=== PATIENT | male | born 1990 | race Hispanic/Latino ===

== ENCOUNTER → 2018-11-22 | Outpatient (CLI) | payer OTHER ==
--- NOTE | 2018-11-22 12:04 | MRI ---
EXAM DESCRIPTION: Lumbar Spine w/o Contrast CLINICAL HISTORY: LOW BACK PAIN COMPARISON: None Available. TECHNIQUE: MRI of the lumbar spine is performed according to our usual protocol with axial and sagittal multi sequence imaging. FINDINGS: Sagittal T2 images reveal decreased signal intensity consistent with desiccation of the intervertebral discs at levels L4-5 and L5-S1. Posterior annular bulges are relatively mild at these levels. No prevertebral mass or aneurysm. Lower cord and conus appear normal. Tip of the conus is behind the upper L1. High signal intensity in the posterior L5-S1 disc consistent with posterior annular tear. Sagittal T1 images reveal benign marrow signal characteristics. Normal T1 signal intensity and appearance of the lower cord and conus. Sagittal STIR images are negative for marrow edema within the vertebral bodies or posterior elements. No paraspinous fluid collection or cystic lesion. Axial T1 and T2-weighted images were obtained to evaluate the disc levels. L1-2: No posterior annular bulge or herniation. No spinal stenosis or neural foraminal narrowing. Facets appear normal. L2-3: No posterior annular bulge or herniation. No spinal stenosis or neural foraminal narrowing. Facets appear normal. L3-4: No posterior annular bulge or herniation. No spinal stenosis or neural foraminal narrowing. Facets appear normal. L4-5: Mild diffuse posterior annular bulge with superimposed midline protrusion measuring 4.5 mm in AP dimension and 1.4 cm in mediolateral width. This extends slightly inferiorly behind the upper endplate of L5. No significant spinal stenosis or neural foraminal narrowing. Mild facet hypertrophic changes with prominent ligamentum flavum thickness causes moderately severe left and moderate right subarticular recess narrowing impinging upon descending left L5 nerve root. L5-S1: Small midline protrusion measures 4 mm in AP dimension and approximately 1.3 cm in medial lateral width. Posterior midline annular tear measures 8 mm in medial lateral width. No significant spinal stenosis or neural foraminal narrowing. Minimal facet hypertrophy. Upper sacrum appears intact. No retroperitoneal mass or aneurysm. IMPRESSION: Midline disc protrusion 4.5 mm at L4-5 with narrow left subarticular recess impinging upon the descending left L5 nerve root. Small posterior annular tear with midline protrusion 4 mm at L5-S1. Electronically signed by: Ronald Coats MD 11/22/2018 12:02 PM CDT
== END ==
LOC: MRI 07:00
PROVIDERS: ATTEND Family Medicine
DX: M51.26 Other intervertebral disc displacement, lumbar region (principal); M51.37 Other intervertebral disc degeneration, lumbosacral region